=== PATIENT | male | born 1970 | race Caucasian/White ===

== ENCOUNTER 2018-01-10 06:56 | Emergency (ER) | payer OTHER ==
[~2018-01-10] VITALS: Ht 185.4 cm; Wt 113.9 kg
[~2018-01-10 06:56] MED LIST: ENALAPRIL MALEA10 MG PO; PERCOCET 5/31 TABLET PO; TORADOL10 MG PO
[2018-01-10 08:45] VITALS: BP 114/68
== END 2018-01-10 08:59 | disposition home or self-care (01) ==
LOC: EME 06:56
DX: H16.001 Unspecified corneal ulcer, right eye (principal); I10 Essential (primary) hypertension; Z87.442 Personal history of urinary calculi; Z88.6 Allergy status to analgesic agent
CPT/HCPCS: 99281; 99284